=== PATIENT | female | born 2000 | race Caucasian/White ===

== ENCOUNTER 2018-05-23 08:40 | Emergency (ER) | payer OTHER ==
[~2018-05-23] VITALS: Ht 162.6 cm; Wt 81.6 kg
[~2018-05-23 08:40] MED LIST: BACTRIM DS1 EA
[2018-05-23 09:43] VITALS: BP 126/80
== END 2018-05-23 09:55 | disposition home or self-care (01) ==
LOC: FSED 08:40
DX: R10.12 Left upper quadrant pain (principal); R10.11 Right upper quadrant pain; R11.2 Nausea with vomiting, unspecified; K59.00 Constipation, unspecified
CPT/HCPCS: 74022; 81025; 99283